=== PATIENT | female | born 1945 ===

== ENCOUNTER 2023-09-04 12:57 | Outpatient (CLI) | payer OTHER | END 2023-09-04 13:02 | disposition home or self-care (01) | LOC: RAD 12:57 | PROVIDERS: ATTEND Orthopaedic Surgery | DX: M25.511 Pain in right shoulder (principal) ==

== ENCOUNTER 2023-09-11 09:06 | Outpatient (CLI) | payer OTHER | END 2023-09-11 09:13 | disposition home or self-care (01) | LOC: RAD 09:06 | PROVIDERS: ATTEND Orthopaedic Surgery | DX: M25.511 Pain in right shoulder (principal) ==